=== PATIENT | male | born 1975 | race Caucasian/White ===

== ENCOUNTER 2016-09-12 13:56 | Emergency (ER) | payer MEDICAID, OTHER ==
[~2016-09-12] VITALS: Ht 177.8 cm; Wt 112.0 kg
[2016-09-12 14:01] VITALS: Ht 177.8 cm; Wt 112.0 kg
[2016-09-12] MEDS ORDERED: LORAZEPAM 1 MG TAB PO ONE (15:30)
[2016-09-12 15:34] LABS: ADD SCAN DIFF NO
[2016-09-12 15:37] LABS: BASOPHIL # 0.1 10^3/ul (0.0-0.1); BASOPHILS % 0.5 % (0.0-2.0); EOSINOPHILS # 0.1 10^3/ul (0.0-0.5); EOSINOPHILS % 1.1 % (0.0-7.0); HEMATOCRIT 50.3 % (42.0-52.0); HEMOGLOBIN 16.5 g/dl (14.0-18.0); LYMPHOCYTES # 2.7 10^3/ul (0.8-2.9); LYMPHOCYTES % 28.2 % (15.0-51.0); MEAN CORPUSCULAR HEMOGLOBIN 29.4 pg (29.0-33.0); MEAN CORPUSCULAR HGB CONC 32.8 g/dl (32.0-37.0); MEAN CORPUSCULAR VOLUME 89.7 fl (82.0-101.0); MEAN PLATELET VOLUME 12.2 fl (7.4-10.4); MONOCYTE # 0.7 10^3/ul (0.3-0.9); MONOCYTES % 7.8 % (0.0-11.0); NEUTROPHIL # 5.8 10^3/ul (1.6-7.5); NEUTROPHILS % 62.2 % (39.0-77.0); PLATELET COUNT 221 10^3/UL (140-415); RED BLOOD COUNT 5.61 10^6/ul (4.70-6.10); RED CELL DISTRIBUTION WIDTH 14.3 % (11.5-14.5); WHITE BLOOD COUNT 9.4 10^3/ul (4.8-10.8)
--- NOTE | 2016-09-12 15:48 | ERD ---
ER Documentation Chief Complaint Date/Time DATE: 09/12/16 TIME: 15:43 Chief Complaint GENERALIZE FATIGUE AND LEGS FEELS WEAK X 2 WKS, WORSE WHEN HE WORRIES HPI This is a 41-year-old male who presents to the emergency department today with his boyfriend for complaints of weakness in his legs for the past 2 weeks. Patient states he also feels numbness and tingling in his arms. Patient states that the problem is worse when he worries. States that his parents have told him that he might have something wrong with them. States that he also has a bump on the left side of his face that has pus in it. States that he drinks alcohol and drinks 12 beers a day. States he has some nausea but no vomiting. Denies any fevers or chills, abdominal pain. ROS All systems reviewed and are negative except as per history of present illness. Medications Home Meds Active Scripts Sulfamethoxazole-Trimethoprim* (Bactrim* DS) 800-160 Mg Tab, 1 TAB PO BID for 7 Days, TAB Prov:TAMI GARVIN PA-C 09/12/16 Cephalexin* (Keflex*) 500 Mg Capsule, 500 MG PO QID for 7 Days, CAP Prov:TAMI GARVIN PA-C 09/12/16 Allergies Allergies: Coded Allergies: No Known Allergy (Unverified , 09/12/16) PMhx/Soc History of Surgery: No Anesthesia Reaction: No Hx Neurological Disorder: No Hx Respiratory Disorders: No Hx Cardiac Disorders: No Hx Psychiatric Problems: No Hx Miscellaneous Medical Probl: No Hx Alcohol Use: Yes (12 beers daily) Hx Substance Use: No Hx Tobacco Use: No Smoking Status: Unknown if ever smoked Physical Exam Vitals Vital Signs Date Time Temp Pulse Resp B/P Pulse Ox O2 Delivery O2 Flow Rate FiO2 09/12/16 14:01 98.9 125 20 125/102 99 Physical Exam Const: Obese, anxious Head: Atraumatic Eyes: Normal Conjunctiva. PERRLA. EOM intact. ENT: Normal External Ears, Nose and Mouth. Neck: Full range of motion..~ No meningismus. Resp: Clear to auscultation bilaterally Cardio: Tachycardic regular rhythm, no murmurs Abd: Soft, non tender, non distended. Normal bowel sounds Skin: 1 cm abscess left side of face along neck. Mild drainage. No erythema or warmth. Back: No midline or flank tenderness Ext: No cyanosis, or edema Neur: Awake and alert. Cranial nerves II through XII intact per no gait ataxia. Psych: Normal Mood and Affect Result Diagram: 09/12/16 1528 09/12/16 1528 Results 24 hrs Laboratory Tests Test 09/12/16 15:28 White Blood Count 9.410^3/ul Red Blood Count 5.6110^6/ul Hemoglobin 16.5g/dl Hematocrit 50.3% Mean Corpuscular Volume 89.7fl Mean Corpuscular Hemoglobin 29.4pg Mean Corpuscular Hemoglobin Concent 32.8g/dl Red Cell Distribution Width 14.3% Platelet Count 62400^3/UL Mean Platelet Volume 12.2fl Neutrophils % 62.2% Lymphocytes % 28.2% Monocytes % 7.8% Eosinophils % 1.1% Basophils % 0.5% Nucleated Red Blood Cells % 0.0/100WBC Neutrophils # 5.810^3/ul Lymphocytes # 2.710^3/ul Monocytes # 0.710^3/ul Eosinophils # 0.110^3/ul Basophils # 0.110^3/ul Nucleated Red Blood Cells # 0.010^3/ul Sodium Level 142mmol/L Potassium Level 3.9mmol/L Chloride Level 100mmol/L Carbon Dioxide Level 30mmol/L Anion Gap 16 Blood Urea Nitrogen 6mg/dl Creatinine 0.69mg/dl Glucose Level 138mg/dl Calcium Level 9.1mg/dl Total Bilirubin 0.6mg/dl Direct Bilirubin 0.00mg/dl Indirect Bilirubin 0.6mg/dl Aspartate Amino Transf (AST/SGOT) 97IU/L Alanine Aminotransferase (ALT/SGPT) 106IU/L Alkaline Phosphatase 167IU/L Total Protein 9.7g/dl Albumin 4.6g/dl Globulin 5.10g/dl Albumin/Globulin Ratio 0.90 Current Medications Medications (Trade) Dose Ordered Sig/Rip Route PRN Reason Start Time Stop Time Status Last Admin Dose Admin Lorazepam (Ativan) 1 mg ONCE ONCE PO 09/12/16 15:30 09/12/16 15:31 DC 09/12/16 15:24 Procedures/MDM This a 41-year-old male who presents the emergency department today with multiple complaint complaining of weakness and numbness and tingling in his lower extremities and hands that is worse when he is anxious. Patient does drink 12 beers a day and therefore I did obtain laboratory work as well as an EKG as patient was tachycardic. Do not feel the patient requires imaging at this time. EKG read and interpreted by Dr. Lacey. Rate [address] elevation. No QT prolongation. Sinus tachycardia otherwise normal EKG. Low suspicion for acute [place], PE, pericarditis. Laboratory workup shows no elevated white blood cell count. He is not anemic. Platelets are within normal limits. Electrolytes are within normal limits. Glucose is within normal limits. Liver enzymes are elevated. Patient is not exhibiting signs of delirium tremens. He was anxious and therefore did give him an Ativan. Patient also had a very small abscess on the left side of his face that was already draining. I do not feel the patient requires incision and drainage at this time. He is afebrile and otherwise well-appearing. There is no erythema or warmth. Low suspicion for sepsis, deep space infection, trapping infection, cellulitis. Patient will be given a prescription for Keflex and Bactrim. Instructed in wound check 48 hours. Patient has weakness of uncertain etiology however he describes more numbness and tingling in his legs and arms. Patient symptoms at this time may be related to anxiety. I will not give the patient a prescription for benzodiazepines given his alcohol abuse. Patient did have elevated liver enzymes patient was instructed to stop abusing alcohol. He has no abdominal pain on physical exam low suspicion for pancreatitis, acute cholecystitis, acute surgical abdomen. Low suspicion for anemia. Patient is walking around the emergency department in no acute distress. At this time the patient is stable for discharge and outpatient management. Patient should follow up with their PCP in the next 1-2 days. They may return to the emergency department sooner for any persistent or worsening of symptoms. Patient understood and agreed with the plan. Departure Diagnosis: Primary Impression: Multiple complaints Condition: TAMI Cooper PA-C Sep 12, 2016 15:48
[2016-09-12 15:50] LABS: ALBUMIN 4.6 g/dl (3.3-4.9)
[2016-09-12 15:51] LABS: POTASSIUM 3.9 mmol/L (3.5-5.1)
[2016-09-12 15:53] LABS: BILIRUBIN,INDIRECT 0.6 mg/dl (0-1.1); BILIRUBIN,TOTAL 0.6 mg/dl (0.2-1.3); CREATININE 0.69 mg/dl (0.61-1.24)
[2016-09-12 15:54] LABS: ALBUMIN/GLOBULIN RATIO 0.9; CALCIUM 9.1 mg/dl (8.4-10.2); TOTAL PROTEIN 9.7 g/dl (6.1-8.1)
[2016-09-12] MEDS ORDERED: CEPH-443 PO (16:48)
[2016-09-12] MEDS ORDERED: BACTDS PO (16:48)
[2016-09-12 17:13] VITALS: BP 142/102; PULSE 104; RESP 18; TEMP 99.2
== END 2016-09-12 17:13 | disposition home or self-care (01) ==
LOC: FTE 13:56
DX: R53.1 Weakness (principal); R53.83 Other fatigue; R20.0 Anesthesia of skin; R20.2 Paresthesia of skin; R11.0 Nausea; L02.01 Cutaneous abscess of face
CPT/HCPCS: 36415; 80053; 85025; 93005; Z7502; Z7610